=== PATIENT | female | born 1955 | race Caucasian/White ===

== ENCOUNTER → 2023-06-12 10:39 | Outpatient (REF) | payer BC, SELFPAY | LOC: HWRAD 10:39 | PROVIDERS: ATTENDING PHYSICIAN Urology; FAMILY PHYSICIAN Internal Medicine | DX: N32.81 Overactive bladder (principal) | CPT/HCPCS: 76770; 76856 ==

== ENCOUNTER 2023-08-11 06:25 | Day surgery (SDC) | payer BC, SELFPAY ==
[2023-08-04 07:00] VITALS: BMI 29.5
[2023-08-04 08:51] LABS: Hemoglobin 13.7 g/dL (12.0-16.0); Mean Corp Hgb Conc. 33.4 g/dL (33.0-37.0); Mean Corpuscular Hgb 32.5 pg (27.0-31.0); Mean Corpuscular Volume 97.2 fL (81.0-99.0); Platelet Count 350 10^3/uL (130-400); Red Blood Cell Count 4.22 10^6/uL (4.20-5.40); Red Cell Dist. Width 12.6 % (11.5-14.5); White Blood Cell Count 9.7 10^3/uL (4.8-10.8)
[2023-08-04 09:35] LABS: Blood Urea Nitrogen 24 mg/dl (7-17); Calcium 10.3 mg/dl (8.4-10.2); Carbon Dioxide 25 mmol/L (22-30); Chloride 103 mmol/L (98-107); Estimated Creatinine Clearance 61 ml/min; Glucose 92 mg/dl (70-99); Potassium 5.2 mmol/L (3.5-5.1); Sodium 137 mmol/L (135-145); eGFR > 60.00
[2023-08-11] VITALS (8 sets, daily range): BP systolic 92–128; BP diastolic 50–73; BMI 29.2; BMI 29.5
[2023-08-11] MEDS: Pyridium 200 MG PO (09:51)
[2023-08-11] MEDS: NORMOSOL-R 1000 IV (09:56)
--- NOTE | 2023-08-11 12:48 | PTCARENOTE ---
garcia back filled with 300ml NSS, garcia removed per Dr. Loja order without complications
== END 2023-08-11 13:50 | disposition home or self-care (01) ==
LOC: SDS 06:25
PROVIDERS: ATTENDING PHYSICIAN Obstetrics & Gynecology; FAMILY PHYSICIAN Internal Medicine
DX: N39.3 Stress incontinence (female) (male) (principal); N36.41 Hypermobility of urethra
CPT/HCPCS: 57288; 36415; 80048; 85027; 93005; C1771